=== PATIENT | female | born 1980 | race Asian ===

== ENCOUNTER 2018-02-02 23:57 | Emergency (ER) | payer BC ==
[2018-02-03] MEDS ORDERED: Famotidine/PF 20 mg/2ml Vial ONE (00:08)
[2018-02-03] MEDS ORDERED: diphenhydrAMINE 50 MG/ML VIAL ONE (00:08)
[2018-02-03] MEDS ORDERED: methylPREDNISolone Sod Succ/PF 125 MG/2 ML VIAL ONE ×2 (00:08→00:13)
== END 2018-02-03 01:06 | disposition home or self-care (01) ==
LOC: SCSER 23:57
DX: L50.0 Allergic urticaria (principal)
CPT/HCPCS: 96361; 96374; 96375; J1200; J2930; S0028

== ENCOUNTER 2018-06-21 12:56 | Outpatient (CLI) | payer BC ==
[~2018-06-21 12:56] MED LIST: Iopamidol 370 76% 100 ML VIAL ONE
--- NOTE | 2018-06-21 17:48 | CT ---
ABDOMEN AND PELVIC CT SCAN WITH AND WITHOUT IV CONTRAST: Date: 06/21/18 HISTORY: 38-year-old female with history of generalized abdominal pain and hematuria. FINDINGS: The lung bases are clear. The visualized liver, gallbladder, pancreas, spleen, and adrenal glands are unremarkable. No renal calculus or acute obstruction. Normal appearing appendix. Some nodularity of the uterus, including a 1.9 cm diameter enhancing focus, evidence for uterine fibroids, up to 1.9 cm. Ovaries and adnexal regions are unremarkable. Unremarkable appearing urinary bladder. No evidence for obstruction. Very tiny low density focus in the right kidney, too small to characterize, poss ibly a tiny cyst. IMPRESSION: Unremarkable abdomen and pelvic CT scan. No significant acute process. Probable small intrauterine fi broid/fibroids. POS: [facility]
== END 2018-06-21 12:57 | disposition home or self-care (01) ==
LOC: CT 12:56
PROVIDERS: ATTEND Family Medicine
DX: R10.84 Generalized abdominal pain (principal)
CPT/HCPCS: 74178